=== PATIENT | female | born 1985 | race Caucasian/White ===

== ENCOUNTER 2021-12-15 08:21 | Day surgery (SDC) | payer OTHER, SELFPAY ==
[2021-12-13 16:54] LABS: Hematocrit 42.5 % (37-47); Hemoglobin 13.9 g/dL (12.0-15.0); Mean Corp Hgb Conc 32.7 g/dL (32-36); Mean Corpuscular Volume 91.6 fL (81-99); Mean Platelet Vol. 10.8 fl (6.2-12.0); Platelet Count 259 K/mm3 (150-450); RBC Distribution Width CV 12.1 % (11.6-14.6); RBC Distribution Width SD 40.6 fl (35.1-43.9); Red Blood Count 4.64 M/mm3 (4.2-5.4); White Blood Count 7.2 K/mm3 (4.4-11.0)
[2021-12-13 17:03] LABS: International Normalized Ratio 1.1; Prothrombin Time (Protime)PT. 13.3 SECONDS (11.7-14.9)
[2021-12-13 17:04] LABS: Partial Thromboplast Time 32.2 Seconds (24.1-36.2)
[2021-12-15] VITALS (8 sets, daily range): BP systolic 95–117; BP diastolic 58–82; PULSE 66–84; RESP 15–16; TEMP 36.6–37.5; O2SAT 99–100; BMI 21.2
--- NOTE | 2021-12-15 | IMM_PTH ---
PATIENT: PRASAD MCDONALD LOC: [facility] – [place] U#:[id number] AGE/SX: 36/F ROOM: RE12/15/[address]: Dr. Bridget Colon MD : 1985 BED: DIS: 12/15/2021 SPEC #: [id number] RECD: 12/19/21 12:39 STATUS: GAGE REQ #: [id number] EMILY: 12/15/21 00:[address]: Bridget Lazo DEPT: IMMUNOHISTOCHEMISTRY RECD BY: Crystal Antony ENTERED: 12/19/21 12:39 SP TYPE: IMMUNO OT DR: No Primary Care Phys Tissues: A - Endometrium, NOS Procedures: CD138 (initial) PHYSICIAN & INSTITUTION [place] [id number] SPECIMEN INFORMATION: Tissue Source: A ? Endometrial curettings Clinical Info: Endometriosis Specimen Number: [id number] CPT code: 51404 METHODOLOGY: Deparaffinized sections of prefer/formalin-fixed tissue or PAP/DQ stained slides are incubated with monoclonal/polyclonal antibodies/oligonucleotide probes. Localization is made via biotin free immunoperoxidase method. Appropriate controls are performed and reacted as expected. Results on target cell population are indicated in the following table: RESULTS: ANTIBODY / CLONE RESULT Block A CD138 (B-A38) positive, very rare cells These tests were developed and their performance characteristics determined by [facility]. They may not have been cleared or approved by the U.S. Food and Drug Administration. The FDA has determined that such clearance or approval is not necessary. The above immunohistochemical/dualISH markers are ordered and reviewed by the Pathologist. INTERPRETATION: A. Endometrial curettings: Very rare plasma cells present. AM:liz 12/20/2021
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
[2021-12-15 08:58] LABS: Internal QC Validated? YES +Cl - CLEAR BKGD
[2021-12-15 09:00] LABS: Pregnancy, Urine Negative Negative
[2021-12-15] MEDS: Lactated Ringers 1,000 ML 15 ML IV (09:35)
--- NOTE | 2021-12-15 10:00 | EMB_PTH ---
PATIENT: PRASAD MCDONALD LOC: [facility] – [place] U#:[id number] AGE/SX: 36/F ROOM: RE12/15/[address]: Dr. Bridget Colon MD : 1985 BED: DIS: 12/15/2021 SPEC #: [id number] RECD: 12/15/21 15:29 STATUS: GAGE ANDREZ #: [id number] EMILY: 12/15/21 10:[address]: Bridget Lazo DEPT: SURGICAL PATHOLOGY RECD BY: Lamar Finn ENTERED: 12/16/21 11:31 SP TYPE: ENDOM BX/C ZENON DR: No Primary Care Phys Tissues: A - Endometrium, NOS B - Pelvis, NOS C - Pelvis, NOS D - Sigmoid colon biopsy E - Uterine serosa F - Ovarian follicle, NOS G - Ovarian follicle, NOS Procedures: Surgery Specimen Level IV HEADER OPERATION: Diagnostic laparoscopy with treatment of endometriosis PRE-OP DIAGNOSIS: Endometriosis TISSUE SUBMITTED: A - Endometrial curettings, test for plasma cell CD38, B - Left pelvic side wall, C - Left pelvic side wall #2, D - Sigmoid adhesion, E - Left uterosacral ligament, F - Left ovarian fossa, G - Left ovarian fossa #2 MICROSCOPIC DIAGNOSIS A. Endometrium, curettings: Transition endometrium with glandular and stromal breakdown. See comment. B. Left pelvic sidewall, biopsy: Fragment of benign fibrofatty tissue. C. Left pelvic sidewall #2, biopsy: Fragment of benign fibrofatty tissue. D. Sigmoid adhesion, biopsy: Fragment of benign fibrofatty tissue. E. Left uterosacral ligament, biopsy: Fragment of benign fibrofatty tissue. F. Left ovarian fossa, biopsy: Consistent with endometriosis. G. Left ovarian fossa #2, biopsy: Consistent with endometriosis. AM:liz 12/19/2021 COMMENT A. Immunohistochemistry ([id number]) supports the above diagnosis. Only very rare plasma cell is seen. Clinical correlation is suggested. MICROSCOPIC DESCRIPTION Slides are reviewed. GROSS DESCRIPTION A - Received in fixative is one container labeled with the patient's name and designated endometrial curettings. The specimen consists of multiple fragments of hemorrhagic soft tissue that in aggregate measure 2 x 1 x 0.1 cm. The specimen is totally submitted in one cassette. B - Received in fixative is one container labeled with the patient's name and designated left pelvic side wall. The specimen consists of a piece of lange-yellow soft tissue measuring 0.6 x 0.6 x 0.2 cm. The specimen is totally submitted in one cassette. C - Received in fixative is one container labeled with the patient's name and designated left pelvic side wall #2. The specimen consists of one irregular fragment of light lange soft tissue that measures 0.2 x 0.1 x 0.1 cm. The specimen is totally submitted in one cassette. D - Received in fixative is one container labeled with the patient's name and designated sigmoid adhesions. The specimen consists of one irregular fragment of light lange soft tissue that measures 0.6 x 0.5 x 0.2 cm. The specimen is totally submitted in one cassette. E - Received in fixative is one container labeled with the patient's name and designated left uterosacral ligament. The specimen consists of one irregular fragment of light lange soft tissue that measures 0.6 x 0.5 x 0.1 cm. The specimen is totally submitted in one cassette. F - Received in fixative is one container labeled with the patient's name and designated left ovarian fossa. The specimen consists of one irregular fragment of light lange soft tissue that measures 0.7 x 0.5 x 0.1 cm. The specimen is totally submitted in one cassette. G - Received in fixative is one container labeled with the patient's name and designated left ovarian fossa #2. The specimen consists of one irregular fragment of light lange soft tissue that measures 1.2 x 0.3 x 0.1 cm. The specimen is totally submitted in one cassette. / SJ:rg 12/16/2021 TC:5 CPT: 83046 x7
[2021-12-15] MEDS: Lubricating Jelly 60 GM Tube 30 GM (11:35)
[2021-12-15] MEDS: Cefotetan 2 GM in 0.9% NS 100 ML IV (11:35)
[2021-12-15] MEDS: Lidocaine 1% (30 ml sdv) 30 ML Vial (13:40)
[2021-12-15] MEDS: Bupivacaine Mpf 0.5% 30 ML VIAL (13:41)
--- NOTE | 2021-12-15 13:46 | DCINST_ITS ---
Discharge Instructions Diet Discharge Diet: No restrictions Activity Discharge Activity: Return to Normal Activity May resume sexual activity in: 4 weeks Lifting Restrictions: 10 lb Dressing / Incision Call your doctor if your incision/area has: Continuous Slow Oozing, Sudden Increased Bleeding, Increased Pain/ Swelling, Increased Redness, Foul Smelling Discharge and Swelling at the incision site Call your doctor if you observe: Fever of 101 or Higher, Inability to urinate, Inability to have a bowel movement, Shortness of breath, Chest pain, Calf dis comfort and Uncontrolled pain Remove Dressing in: 2 days Cleanse incision/area with: Soap & Water Follow Up Care Please Follow Up With: Bridget Lazo MD When: 2-4 weeks Test Results: Test results from this visit will be discussed in further detail at your follow-up appointment, if applicable. Discharge Plan Admission Primary Reason for Your Visit: Endometriosis, Endometritis Attending Provider: Bridget Lazo Primary Care Provider: Ramana PhysicianKrissy Primary Instructions Patient Instructions: Endometriosis Lap Tx Dc Discharge Orders/Prescriptions Prescriptions: New ibuprofen 800 mg tablet 800 mg PO Q8H PRN (Reason: pain) Qty: 30 RF: 0 oxycodone 5 mg capsule 5 mg PO Q6H PRN (Reason: pain) 7 Days Qty: 20 RF: 0 No Action naltrexone 50 mg Tablet 4.5 mg PO DAILY RF: 0 alprazolam 0.5 mg tablet RF: 0 Referrals / Follow Up: Care Physician,No Primary [Primary Care Provider] - Disposition Disposition (needs filled in before D/C Order can be placed): Home, Self Care
[2021-12-15] MEDS: HYDROcodone Bitartrate/Apap 5/325 Tablet PO (15:38)
--- NOTE | 2021-12-16 19:20 | OP.PCM_ITS ---
Problems Associated Problem List Diagnoses (1) Endometriosis: (2) Endometritis: Report of Operation Date of Procedure: 12/15/21 Pre-Operative Diagnosis: 1. Endometriosis 2. Suspected endometritis 3. Secondary infertility Post-Operative Diagnosis: 1. Endometriosis 2. Suspected endometritis 3. Secondary infertility Surgery/Procedure Performed:: 1. Hysteroscopy 2. Dilation and curettage 3. Diagnostic laparoscopy 4. Peritoneal biopsies - removal of endometriosis Description of Surgical Findings:: Thinning pelvic peritoneum with small defects, multiple fibrotic lesions, and few clear vesicular lesions. Large right posterior culdesac endometriosis implant Thin abdominal adhesions Normal appendix Surgeon: Bridget Lazo front end developer javascript html css: Annalise Brown Type of Anesthesia: General and Local Anesthesiologist: Gema Buenrostro Specimen's removed: 1. Left abdominal side wall peritoneum 2. Left uterosacral ligament peritoneum 3. Estimated Blood Loss (mL): 60 ml Fluids Replaced: 900 ml Description of Procedure: 36-year-old 3 para 2-0-1-2 presents for scheduled laparoscopy and surgical treatment of endometriosis as indicated, hysteroscopy D&C. Patient experienced symptomatic endometriosis and was previously diagnosed on laparoscopy. She reported menstrual cycle changes concerning for endometritis as well as secondary infertility. I advised her to proceed with hysteroscopy, D&C, laparoscopy. Procedural risks, benefits, indications and alternatives were reviewed and patient opted to proceed. Procedure patient was brought to the operating room and sinus performed. She is placed in the dorsal supine position and induced under general anesthesia and intubated. She was repositioned into dorsal lithotomy and her arms were tucked at her sides. The abdomen and perineum were prepped and draped in sterile fashion. An inferior umbilical incision was made and Veress needle placed with successful hanging drop test and no aspirate. The abdomen was insufflated to 12 mmHg. The Veress needle was removed and a 5 mm port introduced under laparoscopic guidance confirming entry into the abdominal cavity. Bilateral tap block was performed using half percent Marcaine under laparoscopic guidance and 5mm ports were placed at the sites. Attention was turned to the perineum and the patient placed into high lithotomy. Qiu catheter was placed into the bladder. Speculum was placed vaginally cervix grasped using a single-tooth tenaculum. The uterus was sounded and hysteroscopy performed demonstrating an anterior uterine fibroid. Sharp curettage was performed and followed by chromotubation under laparoscopic guidance confirming bilateral E flux of methylene blue into the peritoneal cavity. The ZUMI uterine manipulator was placed and secured. The tenaculum was removed from the cervix and the patient placed into low lithotomy. Attention was again turned to the abdomen and left abdominal wall peritoneal endometriosis was excised using monopolar L-hook and sharp dissection. The left ureter course was observed and a second endometriotic lesion at the left uterosacral ligament was excised in similar fashion. There was fibrosis of the peritoneal lining at the inferior posterior broad ligament with lesions suspicious for endometriosis. The fibrotic area was superficially incised however arteriolar bleeding occurred with no improvement using monopolar electrocoagulation thus a 5mm vascular clip was placed with improved hemostasis. Given the extent of the fibrosis and limited ability to assess the pelvic a natomy and patient's strong desire to maintain fertility I opted to defer additional dissection. The abdomen was desufflated and ports removed. The skin was closed by the AMPLIFIER MECHANIC using 4-0 Monocryl. Steri-Strips and OpSite were placed over the dressings and additional Marcaine was administered. Qiu catheter was removed as was the uterine manipulator. The patient was placed into dorsal supine, awakened, extubated and transferred to the recovery room without complication. Admit VTE Documentation VTE Present on Admission: No VTE Pharm Prophylaxis ordered?: No
== END 2021-12-15 23:59 | disposition home or self-care (01) ==
LOC: SDC 08:24 → AC 08:24
PROVIDERS: Anesthesiology; Referring Provider Obstetrics & Gynecology; Visit Provider Obstetrics & Gynecology
PROC: (CPT 49320; principal; 2021-12-15 09:45)
PROC: 0UDB8ZZ Extraction of Endometrium, Via Natural or Artificial Opening Endoscopic (ICD-10-PCS; CPT 58558; 2021-12-15 09:45)
DX: N80.3 Endometriosis of pelvic peritoneum (principal); D25.9 Leiomyoma of uterus, unspecified; Z87.891 Personal history of nicotine dependence; N97.9 Female infertility, unspecified
CPT/HCPCS: 58558; 00952; 36415; 81025; 85027; 85610; 85730; 86850; 86900; 86901; 87426; 88305; 88342; C9803; J7120; J2405; Q9968